=== PATIENT | female | born 1985 ===

== ENCOUNTER 2022-07-14 11:08 | Outpatient (CLI) | payer OTHER | END 2022-07-14 12:29 | disposition home or self-care (01) | LOC: PRENATAL 11:08 | PROVIDERS: ATTEND Obstetrics & Gynecology Maternal & Fetal Medicine | DX: O35.9XX0 Maternal care for (suspected) fetal abnormality and damage, unspecified, not applicable or unspecified (principal); O35.3XX0 Maternal care for (suspected) damage to fetus from viral disease in mother, not applicable or unspecified; Z3A.30 30 weeks gestation of pregnancy ==

== ENCOUNTER 2022-08-18 10:30 | Outpatient (CLI) | payer OTHER ==
[~2022-08-18 10:30] MED LIST: HUMULIN N100 UNIT/2 SUBCUTANEO; HUMULIN R100 UNIT/1 SUBCUTANEO; INSULIN SYRING1 EA29 SUBCUTANEO
== END 2022-08-18 11:45 | disposition home or self-care (01) ==
LOC: PRENATAL 10:30
PROVIDERS: ATTEND Obstetrics & Gynecology Maternal & Fetal Medicine
DX: O26.849 Uterine size-date discrepancy, unspecified trimester (principal); O36.8199 Decreased fetal movements, unspecified trimester, other fetus; O24.419 Gestational diabetes mellitus in pregnancy, unspecified control; Z3A.35 35 weeks gestation of pregnancy